=== PATIENT | male | born 1960 | race Native Hawaiian/Other Pacific Islander ===

== ENCOUNTER 2020-08-10 11:15 | Outpatient (CLI) | payer BC | END 2020-08-10 22:24 | disposition home or self-care (01) | LOC: RAD 11:15 | DX: R06.00 Dyspnea, unspecified (principal) ==

== ENCOUNTER 2020-09-29 12:32 | Outpatient (CLI) | payer BC | END 2020-09-29 19:05 | disposition home or self-care (01) | LOC: RESP 12:32 | PROVIDERS: ATTEND Internal Medicine Sleep Medicine | DX: J43.2 Centrilobular emphysema (principal) ==

== ENCOUNTER 2020-11-04 15:40 | Outpatient (CLI) | payer BC | END 2020-11-04 19:06 | disposition home or self-care (01) | LOC: CT 15:40 | PROVIDERS: ATTEND Internal Medicine Sleep Medicine | DX: Z87.891 Personal history of nicotine dependence (principal) | CPT/HCPCS: G0297-TC ==

== ENCOUNTER 2021-02-20 08:22 | Outpatient (CLI) | payer BC ==
[2021-02-20 09:00] LABS: PLATELET COUNT 215 K/uL (142-355)
[2021-02-20 09:03] LABS: POTASSIUM 4.5 mmol/L (3.6-5.2)
== END 2021-02-20 19:23 | disposition home or self-care (01) ==
LOC: LABW 08:22
PROVIDERS: ATTEND Specialist
DX: Z01.810 Encounter for preprocedural cardiovascular examination (principal); R94.39 Abnormal result of other cardiovascular function study
CPT/HCPCS: 36415; 80053; 85027